=== PATIENT | male | born 1995 | race Caucasian/White ===

== ENCOUNTER 2020-09-05 13:23 | Emergency (ER) | payer BC ==
[~2020-09-05] VITALS: Ht 172.7 cm; Wt 85.9 kg
[2020-09-05] MEDS ORDERED: ONDANSETRON 2MG/ML, 2ML ONE (13:38)
[2020-09-05] MEDS ORDERED: THIAMINE 100MG TABLET ONE (13:38)
[2020-09-05] MEDS ORDERED: SODIUM CHLORIDE 0.9% 1,000ML IVBOLUS ONE (14:00)
[2020-09-05] MEDS ORDERED: LORazepam 2 MG/ML, 1ML IVPush ONE (14:00)
[2020-09-05] MEDS ORDERED: ONDANSETRON 2MG/ML, 2ML IVPush ONE (14:00)
[2020-09-05] MEDS ORDERED: PLEASE ENTER ALLERGIES MC SCH (14:00)
[2020-09-05] MEDS ORDERED: THIAMINE 100MG TABLET PO ONE (14:00)
[2020-09-05] MEDS ORDERED: LORazepam 2 MG/ML, 1ML ONE (14:20)
--- NOTE | 2020-09-05 14:46 | NUR ---
PT RESTING COMFORTABLY ON THE GURNEY. STATES THE NAUSEA IS GONE. NO VOMITING NOTED WHILE HE HAS BEEN HERE. FLUIDS ALMOST COMPLETE. CALL LIGHT WITHIN REACH. NO FURTHER NEEDS AT THIS TIME.
[2020-09-05 14:59] VITALS: BP 139/99
--- NOTE | 2020-09-05 15:06 | NUR ---
Patient/Caregiver given discharge instructions and they have confirmed that they understand the instructions. Patient ambulatory with steady gait.
== END 2020-09-05 15:09 | disposition home or self-care (01) ==
LOC: ED 14:56
DX: K02.9 Dental caries, unspecified (principal); K08.89 Other specified disorders of teeth and supporting structures; F10.20 Alcohol dependence, uncomplicated; F17.210 Nicotine dependence, cigarettes, uncomplicated; Z90.89 Acquired absence of other organs; Y90.9 Presence of alcohol in blood, level not specified
CPT/HCPCS: 96361; 96374; 96375; 99284; 99406; J2060; J2405; J7030